=== PATIENT | male | born 1940 | race Caucasian/White ===

== ENCOUNTER 2025-09-27 20:16 | Inpatient (IN) | payer OTHER ==
[~2025-09-27] VITALS: Ht 185.4 cm; Wt 72.6 kg
[2025-09-27] MEDS ORDERED: IV NS 0.9% 250 ML IV ONE (20:49)
[2025-09-27] MEDS ORDERED: IOHEXOL-350 100 ML VIAL IV ONE (20:49)
[2025-09-27] MEDS ORDERED: CT SWABBABLE VALVE TRANS SET 1 EA INFUS.SET MC ONE (20:49)
[2025-09-27 20:58] LABS: PLATELET COUNT (AUTO) 529 K/uL (150-450); RED BLOOD CELL COUNT(AUTO) 3.43 MIL/uL (4.5-6.0); RED CELL DISTRIBUTION WIDTH 13.3 % (11.5-15.0); WHITE BLOOD COUNT (AUTO) 18.0 K/uL (4.3-11.0)
[2025-09-27 21:05] LABS: CALCIUM, SERUM 8.9 mg/dL (8.5-10.1); CREATININE 0.8 mg/dL (0.6-1.3); SODIUM SERUM 128.0 mmol/L (136-145); UREA NITROGEN, BLOOD 26.0 mg/dL (7-18)
[2025-09-27 21:11] LABS: INR 1.43 (0.91-1.10)
[2025-09-27] MEDS ORDERED: AMIODARONE 150 MG/3 ML VIAL IV ONE (21:25)
[2025-09-27] MEDS: AMIODARONE 150 MG in IV D5W 100 ML IV ONE (21:30)
[2025-09-27] MEDS: IV NS 0.9% 1,000 ML BAG IV ONE ×2 (21:33→22:04)
[2025-09-27] MEDS ORDERED: PIPERACI/TAZO 3.375GM/D5W 50ML PB IV ONE (21:56)
[2025-09-27] MEDS: PIPERACILLIN /TAZOBACTAM 3.375 G in IV D5W 50 ML IV ONE (22:00)
[2025-09-27] MEDS: IV NS 0.9% 500 ML BAG IV ONE (22:04)
[2025-09-27] MEDS ORDERED: hydrALAZINE HCL IV 20 MG VIAL IV PRN (22:30)
[2025-09-27] MEDS ORDERED: DOSING PER PHARMACY-AMIODARONE DRIP XX PRN (23:00)
[2025-09-27 23:21] LABS: APPEARANCE,URINE CLOUDY (CLEAR); BLOOD, URINE 3+ Ery/uL (NEGATIVE); LEUKOCYTE ESTERASE ,URINE TRACE (NEGATIVE); NITRITE, URINE NEGATIVE (NEGATIVE); UGLUCOSE NEGATIVE (NEGATIVE)
[2025-09-27 23:29] LABS: ADD URINE CULTURE YES; SQUAMOUS EPITHELIAL CELL,UR Rare /HPF (None Seen)
[2025-09-28] VITALS: BP 119/79; TEMP 98.2; O2SAT 99
[2025-09-28] MEDS: IV NS 0.9% 1,000 ML IV PRN (00:54)
[2025-09-28] MEDS: ENOXAPARIN SODIUM 40 MG/0.4 ML DISP.SYRIN SQ ONE (00:59)
[2025-09-28] MEDS: AMIODARONE 450 MG in IV D5W 241 ML IV PRN (01:01)
[2025-09-28] MEDS: AMIODARONE 150 MG/3 ML VIAL IV ONE (01:18)
[2025-09-28] MEDS: GUAIFENESIN LA 600 MG TABLET.SA PO ONE (02:15)
[2025-09-28 04:00] VITALS: BP 115/68; TEMP 98.1; O2SAT 99
[2025-09-28] MEDS: PIPERACI/TAZO 3.375GM/D5W 50ML PB IV ONE (04:17)
[2025-09-28] MEDS: ZOSYN IVPB 3.375 G in IV D5W 50ml IV ONE (04:33)
[2025-09-28] MEDS ORDERED: PIPERACILLIN /TAZOBACTAM 2.25 G in IV D5W 50 ML IV SCH (05:00)
[2025-09-28 06:41] LABS: PLATELET COUNT (AUTO) 527 K/uL (150-450); RED BLOOD CELL COUNT(AUTO) 3.26 MIL/uL (4.5-6.0); RED CELL DISTRIBUTION WIDTH 13.2 % (11.5-15.0); WHITE BLOOD COUNT (AUTO) 14.4 K/uL (4.3-11.0)
[2025-09-28 06:46] LABS: INR 1.36 (0.91-1.10)
[2025-09-28 07:13] LABS: CALCIUM, SERUM 7.9 mg/dL (8.5-10.1); CREATININE 0.7 mg/dL (0.6-1.3); SODIUM SERUM 132.0 mmol/L (136-145); UREA NITROGEN, BLOOD 20.0 mg/dL (7-18)
[2025-09-28 07:22] LABS: LDL 59.0 mg/dL (0-99)
[2025-09-28] MEDS: PANTOPRAZOLE 40 MG TABLET.DR PO SCH (07:30)
[2025-09-28 08:00] VITALS: BP 104/66; TEMP 98.1; O2SAT 99
[2025-09-28] MEDS: ASPIRIN 81 MG TAB.CHEW PO SCH (08:10)
[2025-09-28] MEDS ORDERED: GUAI1TBM19 PO (08:56)
[2025-09-28] MEDS ORDERED: TERA1CAP11 PO (08:56)
[2025-09-28] MEDS ORDERED: VIT1CAPS44 PO (08:56)
[2025-09-28] MEDS ORDERED: NA P133E RC (08:56)
[2025-09-28] MEDS ORDERED: CLOT10TR PO (08:56)
[2025-09-28] MEDS ORDERED: HYDR500C2 PO ×2 (08:56)
[2025-09-28] MEDS ORDERED: LEVO50TA8 PO (08:56)
[2025-09-28] MEDS: PIPERACILLIN /TAZOBACTAM 3.375 G in IV D5W 100 ML IV SCH (10:14)
[2025-09-28 12:00] VITALS: BP 111/65; TEMP 97.7; O2SAT 100
[2025-09-28] MEDS: AMIODARONE HCL 200 MG TABLET PO SCH (12:59)
[2025-09-28] MEDS ORDERED: GADOTERATE MEGLUMINE 10 MMOL/20 ML VIAL IV ONE (15:35)
[2025-09-28 16:48] VITALS: BP 130/66; TEMP 97.8; O2SAT 100
[2025-09-28] MEDS: HYDROXYUREA 500 MG CAPSULE PO SCH (18:00)
[2025-09-28] MEDS: GUAIFENESIN LA 600 MG TABLET.SA PO SCH (18:00)
[2025-09-28] MEDS: GUAIFENESIN/D-METHORPHAN HB 5 ML UDC PO PRN (18:50)
[2025-09-28 20:00] VITALS: BP 120/68; TEMP 97.7; O2SAT 98
[2025-09-28] MEDS: SIMVASTATIN 20 MG TABLET PO SCH (21:41)
[2025-09-29] VITALS: BP 138/84; TEMP 97.8; O2SAT 96
[2025-09-29 04:00] VITALS: BP 128/81; TEMP 97.3; O2SAT 96
[2025-09-29 07:32] LABS: PLATELET COUNT (AUTO) 532 K/uL (150-450); RED BLOOD CELL COUNT(AUTO) 3.26 MIL/uL (4.5-6.0); RED CELL DISTRIBUTION WIDTH 13.4 % (11.5-15.0); WHITE BLOOD COUNT (AUTO) 11.1 K/uL (4.3-11.0)
[2025-09-29 07:49] LABS: CALCIUM, SERUM 8.0 mg/dL (8.5-10.1); CREATININE 0.6 mg/dL (0.6-1.3); PHOSPHORUS 2.7 mg/dL (2.5-4.9); SODIUM SERUM 130.0 mmol/L (136-145); UREA NITROGEN, BLOOD 14.0 mg/dL (7-18)
[2025-09-29 08:00] VITALS: BP 130/85; TEMP 97.7; O2SAT 98
[2025-09-29] MEDS: LEVOTHYROXINE SODIUM 50 MCG TABLET PO SCH (09:13)
[2025-09-29] MEDS: TERAZOSIN HCL 1 MG CAPSULE PO SCH (09:14)
[2025-09-29 12:00] VITALS: BP 119/61; TEMP 98.1; O2SAT 95
[2025-09-29 16:00] VITALS: BP 111/63; TEMP 97.9; O2SAT 95
[2025-09-29] MEDS: HYDROXYUREA 500 MG CAPSULE PO SCH (17:35)
[2025-09-29 20:00] VITALS: BP 119/67; TEMP 97.3; O2SAT 97
[2025-09-29] MEDS: ENOXAPARIN SODIUM 40 MG/0.4 ML DISP.SYRIN SQ SCH (21:00)
[2025-09-30] VITALS: BP 129/68; TEMP 97.4; O2SAT 97
[2025-09-30 04:00] VITALS: BP 132/71; TEMP 98.2; O2SAT 96
[2025-09-30 08:00] VITALS: BP 118/66; TEMP 97.5; O2SAT 95
[2025-09-30 12:00] VITALS: BP 109/58; TEMP 97.7; O2SAT 96
[2025-09-30 16:10] VITALS: BP 116/59; TEMP 98.3; O2SAT 95
[2025-09-30 17:00] VITALS: BP 116/59
== END 2025-09-30 19:38 | disposition short-term general hospital (02) | DRG 551 ==
LOC: EDBD 20:26 → ER 20:26 → ICUOV 09-28 00:26 → TELE-TD 09-28 00:32 → TELE1 09-28 12:22
PROVIDERS: ADMIT Nurse Practitioner Acute Care; ATTEND Nurse Practitioner Family
DX: M54.16 Radiculopathy, lumbar region (principal); J15.9 Unspecified bacterial pneumonia; E87.1 Hypo-osmolality and hyponatremia; I48.91 Unspecified atrial fibrillation; D53.9 Nutritional anemia, unspecified; E86.0 Dehydration; I10 Essential (primary) hypertension; E86.1 Hypovolemia; R79.89 Other specified abnormal findings of blood chemistry; E87.5 Hyperkalemia; K59.09 Other constipation; F12.90 Cannabis use, unspecified, uncomplicated; D75.839 Thrombocytosis, unspecified; E78.5 Hyperlipidemia, unspecified; Z79.890 Hormone replacement therapy; Z79.899 Other long term (current) drug therapy; G62.9 Polyneuropathy, unspecified; E53.9 Vitamin B deficiency, unspecified; Z79.82 Long term (current) use of aspirin; Z85.819 Personal history of malignant neoplasm of unspecified site of lip, oral cavity, and pharynx
CPT/HCPCS: 36415; 70450-TC; 70496-TC; 70498-TC; 70551-TC; 71045-TC; 72131-TC; 72148-TC; 74018; 80048-TC; 80061-TC; 81001; 82962-TC; 83605-TC; 83735-TC; 84100-TC; 84443-TC; 85025-TC; 85730-TC; 87040-TC; 87086-TC; 92526; 92611; 93307-TC; 97110-TC; 97116-TC; 97530-TC; 97535-TC; A4223; A9575; G0378; J0282; J1650; J2543; J7030; J7040; J7050; J7060; Q9967